=== PATIENT | female | born 1945 | race Asian ===

== ENCOUNTER 2022-05-30 08:48 | Emergency (ER) | payer OTHER ==
[2022-05-30 08:55] VITALS: BP 158/88; PULSE 67; TEMP 98; BMI 21.7
[2022-05-30] MEDS ORDERED: BEBTELOVIMAB (EUA) 175 MG/2 ML VIAL IVPUSH ONE (10:06)
== END 2022-05-30 13:02 | disposition home or self-care (01) ==
LOC: JER 08:48
DX: U07.1 COVID-19 (principal)
CPT/HCPCS: 99283-25; M0222; Q0222